=== PATIENT | male | born 1990 | race Caucasian/White ===

== ENCOUNTER 2016-11-12 19:48 | Emergency (ER) | payer OTHER ==
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
--- NOTE | 2016-11-13 11:04 | ED MED RECONCILIATION SUMMARY ---
Patient: JELENA ENGLISH Medication Reconciliation Report [facility] VisitID: [id number] [address] [place] [address] 26y, M Registration Date/Time: 11/12/2016 Weight: 86.1 kg Height/Length: 67 in. BMI: 29.8 ALLERGIES: Eye Drops The patient's Home Medications are listed below: NONE. The source(s) of the original Home Medication information: patient The following Medications were given to the patient in the Emergency Department: None. The following Medications were prescribed to the patient: Flexeril 10 mg: Take 1 orally every 8 hours as needed for muscle spasm. Dispense twenty (20). No refills. Substitution is permissible. -- Desiree Cruz, Charanjit.R.N.P. Ultram 50 mg tablets: take 1-2 orally every 6 hours as needed for pain. Dispense twenty (20). No refills. Substitution is permissible. -- Desiree Cruz A.R.N.P.
--- NOTE | 2016-11-13 11:04 | ED MAR SUMMARY ---
..... Medication Administration Record [facility] [address], [place] [id number] Patient: JELENA ENGLISH Visit ID: [id number] 26y, M Weight: 86.1 kg Height/Length: 67 in BMI: 29.8 ALLERGIES: Eye Drops
--- NOTE | 2016-11-13 11:04 | ED MAR SUMMARY ---
..... Medication Administration Record [facility] [address] [place], [place] [id number] Patient: JELENA ENGLISH Visit ID: [id number] 26y, M Weight: 86.1 kg Height/Length: 67 in BMI: 29.8 ALLERGIES: Eye Drops
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
--- NOTE | 2016-11-13 11:04 | ED MED RECONCILIATION SUMMARY ---
Patient: JELENA ENGLISH Medication Reconciliation Report [facility] VisitID: [id number] [place] [address] 26y, M Registration Date/Time: 11/12/2016 Weight: 86.1 kg Height/Length: 67 in. BMI: 29.8 ALLERGIES: Eye Drops The patient's Home Medications are listed below: NONE. The source(s) of the original Home Medication information: patient The following Medications were given to the patient in the Emergency Department: None. The following Medications were prescribed to the patient: Flexeril 10 mg: Take 1 orally every 8 hours as needed for muscle spasm. Dispense twenty (20). No refills. Substitution is permissible. -- Desiree Cruz, Charanjit.R.N.P. Ultram 50 mg tablets: take 1-2 orally every 6 hours as needed for pain. Dispense twenty (20). No refills. Substitution is permissible. -- Desiree Cruz A.R.N.P.
== END 2016-11-12 21:05 | disposition home or self-care (01) ==
LOC: ED SRH 19:48
DX: S16.1XXA Strain of muscle, fascia and tendon at neck level, initial encounter (principal); V43.62XA Car passenger injured in collision with other type car in traffic accident, initial encounter; Y93.89 Activity, other specified; Y99.9 Unspecified external cause status; Y92.410 Unspecified street and highway as the place of occurrence of the external cause

== ENCOUNTER 2016-11-15 12:04 | Emergency (ER) | payer OTHER ==
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
--- NOTE | 2016-11-15 13:09 | ED ORDER SUMMARY ---
..... Patient: JELENA ENGLISH OrderSheet [facility] VisitID: [id number] [address] [place] [address] 26y, M Registration Date/Time: 11/15/2016 ORDER SHEET Weight: 86.1 kg (stated) Allergies: Unknown eye drops GENERAL ORDERS: Cervical Spine 2 or 3V Urgent (12:37 11/15/2016 Dorie NAVARRO) ([facility] 12:38 [place]) Thoracic Spine 3V Urgent (12:37 11/15/2016 Dorie NAVARRO) ([facility] 12:38 [place]) MEDICATION ORDERS: IV FLUIDS: ORDER SHEET NOTES: [Electronically signed by Florian Tate DO (13:34 11/15/2016)] [Electronically signed by Muriel Yap R.N. (19:31 11/15/2016)] [Electronically locked/signed by Muriel Yap R.N. (19:11/15/2016)]
--- NOTE | 2016-11-15 13:09 | ED ORDER SUMMARY ---
..... Patient: JELENA ENGLISH OrderSheet [facility] VisitID: [id number] [address] [place] [address] 26y, M Registration Date/Time: 11/15/2016 ORDER SHEET Weight: 86.1 kg (stated) Allergies: Unknown eye drops GENERAL ORDERS: Cervical Spine 2 or 3V Urgent (12:37 11/15/2016 Dorie NAVARRO) ([facility] 12:38 [place]) Thoracic Spine 3V Urgent (12:37 11/15/2016 Dorie NAVARRO) ([facility] 12:38 [place]) MEDICATION ORDERS: IV FLUIDS: ORDER SHEET NOTES: [Electronically signed by Florian Tate DO (13:34 11/15/2016)] [Electronically signed by Muriel Yap R.N. (19:31 11/15/2016)] [Electronically locked/signed by Muriel Yap R.N. (19:11/15/2016)]
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
--- NOTE | 2016-11-15 19:32 | ED MED RECONCILIATION SUMMARY ---
Patient: JELENA ENGLISH Medication Reconciliation Report [facility] VisitID: [id number] [address] [place] [address] 26y, M Registration Date/Time: 11/15/2016 Weight: 86.1 kg Height/Length: 67 in. BMI: 29.8 ALLERGIES: Unknown eye drops The patient's Home Medications are listed below: THE FOLLOWING MEDICATIONS NEED TO BE RECONCILED: Cyclobenzaprine HCl Oral Tramadol HCL Oral The source(s) of the original Home Medication information: patient The following Medications were given to the patient in the Emergency Department: None. The following Medications were prescribed to the patient: Acetaminophen (available over the counter): take according to label instructions. -- Florian Tate DO Ibuprofen 600mg tablets: take 1 tablet orally every 8 hours as needed for pain. Dispense thirty (30). No refills. -- Florian Tate DO Oxycodone/APAP 5 mg/325 mg: take 1 tablet orally every 8 hours as needed for pain. Dispense ten (10). No refill. -- Florian Tate DO
--- NOTE | 2016-11-15 19:32 | ED MAR SUMMARY ---
..... Medication Administration Record [facility] [address], [place] [id number] Patient: JELENA ENGLISH Visit ID: [id number] 26y, M Weight: 86.1 kg Height/Length: 67 in BMI: 29.8 ALLERGIES: Unknown eye drops
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
--- NOTE | 2016-11-15 19:32 | ED MED RECONCILIATION SUMMARY ---
Patient: JELENA ENGLISH Medication Reconciliation Report [facility] VisitID: [id number] [address] [place] [address] 26y, M Registration Date/Time: 11/15/2016 Weight: 86.1 kg Height/Length: 67 in. BMI: 29.8 ALLERGIES: Unknown eye drops The patient's Home Medications are listed below: THE FOLLOWING MEDICATIONS NEED TO BE RECONCILED: Cyclobenzaprine HCl Oral Tramadol HCL Oral The source(s) of the original Home Medication information: patient The following Medications were given to the patient in the Emergency Department: None. The following Medications were prescribed to the patient: Acetaminophen (available over the counter): take according to label instructions. -- Florian Tate DO Ibuprofen 600mg tablets: take 1 tablet orally every 8 hours as needed for pain. Dispense thirty (30). No refills. -- Florian Tate DO Oxycodone/APAP 5 mg/325 mg: take 1 tablet orally every 8 hours as needed for pain. Dispense ten (10). No refill. -- Florian Tate DO
--- NOTE | 2016-11-15 19:32 | ED MAR SUMMARY ---
..... Medication Administration Record [facility] [address] [place], [place] [id number] Patient: JELENA ENGLISH Visit ID: [id number] 26y, M Weight: 86.1 kg Height/Length: 67 in BMI: 29.8 ALLERGIES: Unknown eye drops
== END 2016-11-15 13:14 | disposition home or self-care (01) ==
LOC: ED SRH 12:04
DX: S16.1XXD Strain of muscle, fascia and tendon at neck level, subsequent encounter (principal); S29.012D Strain of muscle and tendon of back wall of thorax, subsequent encounter; V43.62XD Car passenger injured in collision with other type car in traffic accident, subsequent encounter; Z88.8 Allergy status to other drugs, medicaments and biological substances